=== PATIENT | male | born 1950 | race Caucasian/White ===

== ENCOUNTER 2019-07-02 08:19 | Outpatient (CLI) | payer MEDICARE ==
--- NOTE | 2019-07-02 11:29 | NM ---
EXAM: Nuclear medicine cardiac perfusion examination with ejection fraction HISTORY: Chest pain COMPARISON: 04/20/2017 TECHNIQUE: Rest images: 10.3 mCi technetium 99m sestamibi Stress images: 30.0 mCi of technetium 9M sestamibi; Adenosine COMPARISON: None FINDINGS: Tomographic images: No fixed or reversible perfusion defects. Gated images: Normal wall motion and ejection fraction of 60%. EDV: 105 mL LHR: 0.3 TID: 1.1 IMPRESSION: No evidence of ischemia
== END 2019-07-02 08:20 | disposition home or self-care (01) ==
LOC: NM 08:19
PROVIDERS: ATTEND Internal Medicine
DX: R07.9 Chest pain, unspecified (principal)
CPT/HCPCS: 78452; 93017; A9500; J0153

== ENCOUNTER 2021-10-02 06:24 | Day surgery (SDC) | payer MEDICARE ==
[2021-09-23 15:37] VITALS: BMI 33.6
[2021-10-02] MEDS ORDERED: Iothalamate Meglumine 60% 50 ML VIAL FS ONE (08:38)
[2021-10-02] MEDS ORDERED: Fentanyl 100 MCG/2 ML VIAL ONE (08:44)
[2021-10-02] MEDS ORDERED: Famotidine/PF 20 mg/2ml Vial ONE (08:44)
[2021-10-02] MEDS ORDERED: Levofloxacin 500 mg/D5W 100 ml Premix Bag ONE (08:45)
[2021-10-02] MEDS ORDERED: Ondansetron PF 4 MG/2 ML Vial ONE (08:51)
[2021-10-02] MEDS ORDERED: PHENYLEPHRINE-NS 100 MCG/ML 10 ML SYRINGE ONE (08:51)
[2021-10-02] MEDS ORDERED: ePHEDrine 50 MG/ML VIAL ONE (08:51)
[2021-10-02] MEDS ORDERED: PROPOFOL 200 MG/20 ML VIAL ONE (08:51)
[2021-10-02] MEDS ORDERED: Metoclopramide HCl 10 MG/2 ML VIAL ONE (08:51)
[2021-10-02] MEDS ORDERED: Lidocaine 1% PF 5 ML VIAL ONE (08:51)
[2021-10-02] MEDS ORDERED: Oxybutynin 5 MG TAB ONE (09:36)
[2021-10-02] MEDS ORDERED: Phenazopyridine HCl 100 MG TAB ONE (09:36)
[2021-10-02] MEDS ORDERED: Ketorolac Tromethamine 30 MG/ML VIAL ONE (09:36)
== END 2021-10-02 11:12 | disposition home or self-care (01) ==
LOC: SDC 06:24
PROVIDERS: ATTEND Urology
PROC: 0TBB8ZX Excision of Bladder, Via Natural or Artificial Opening Endoscopic, Diagnostic (ICD-10-PCS; principal; 2021-10-02)
DX: C67.2 Malignant neoplasm of lateral wall of bladder (principal); C67.4 Malignant neoplasm of posterior wall of bladder; N40.1 Benign prostatic hyperplasia with lower urinary tract symptoms; N52.01 Erectile dysfunction due to arterial insufficiency; N32.0 Bladder-neck obstruction; Z79.82 Long term (current) use of aspirin; Z79.84 Long term (current) use of oral hypoglycemic drugs; Z79.899 Other long term (current) drug therapy
CPT/HCPCS: 52235; 74420; Q9961; 88305; J1885; J1956; J2405; J2704; J2765; J3010; J3490; J9280; S0028